=== PATIENT | male | born 1980 | race Caucasian/White ===

== ENCOUNTER 2019-05-21 13:36 | Emergency (ER) | payer SELFPAY ==
[2019-05-21 14:54] LABS: BILIRUBIN 1+ (NEGATIVE); BLOOD NEGATIVE (NEGATIVE); CLARITY CLEAR (CLEAR); COLOR YELLOW (YELLOW); GLUCOSE 2+ (NEGATIVE); KETONE NEGATIVE (NEGATIVE); LEUKO ESTERASE 1+ (NEGATIVE); NITRITE NEGATIVE (NEGATIVE); PH 7.5 (5.0-9.0); UROBILINOGEN 0.2 E.U./dl (0.2-1.0)
[2019-05-21 14:55] LABS: BACTERIA 1+; WBC 16-20 wbc/hpf (0-5)
[2019-05-21] MEDS ORDERED: DOXYCYCLINE100 M3 PO (15:42)
[2019-05-21] MEDS ORDERED: CIPRO500 MG PO (15:42)
[2019-05-23 10:30] LABS: GONOCOCCUS BY NAA Positive (Negative)
== END 2019-05-21 16:52 | disposition home or self-care (01) ==
LOC: ED 13:36
PROVIDERS: Nurse Practitioner Family
DX: N39.0 Urinary tract infection, site not specified (principal); R73.9 Hyperglycemia, unspecified; Z20.2 Contact with and (suspected) exposure to infections with a predominantly sexual mode of transmission